=== PATIENT | female | born 1945 | race African-American/Black ===

== ENCOUNTER 2018-04-28 13:33 | Emergency (ER) | payer OTHER ==
[~2018-04-28] VITALS: Ht 162.6 cm; Wt 81.6 kg
[2018-04-28] MEDS ORDERED: LEXAPRO20 MG PO (13:54)
[2018-04-28] MEDS ORDERED: DEPAKOTE ER250 MG PO (13:54)
[2018-04-28] MEDS ORDERED: ZYPREXA20 MG PO (13:55)
[2018-04-28] MEDS ORDERED: CLONAZEPAM1 MG PO (13:55)
[2018-04-28] MEDS ORDERED: ZANTAC300 MG PO (13:56)
[2018-04-28] MEDS ORDERED: NEURONTIN300 MG PO (13:56)
[2018-04-28] MEDS ORDERED: ELIQUIS2.5 MG PO (13:56)
[2018-04-28] MEDS ORDERED: RESTORIL30 MG PO (13:56)
[2018-04-28] MEDS ORDERED: GLIPIZIDE10 MG PO (13:57)
[2018-04-28] MEDS ORDERED: ZOCOR40 MG PO (13:57)
[2018-04-28] MEDS ORDERED: TOPROL XL50 M1 PO (13:57)
[2018-04-28] MEDS ORDERED: PREVACID30 MG PO (13:58)
[2018-04-28] MEDS ORDERED: LISINOPRIL10 MG PO (13:58)
[2018-04-28] MEDS ORDERED: SYNTHROID50 MCG PO (13:59)
== END 2018-04-28 20:06 | disposition home or self-care (01) ==
LOC: ER 13:33
DX: J45.998 Other asthma (principal)

== ENCOUNTER 2018-06-21 19:10 | Emergency (ER) | payer OTHER ==
[~2018-06-21] VITALS: Ht 162.6 cm; Wt 86.2 kg
[~2018-06-21 19:10] MED LIST: CLONAZEPAM1 MG PO; DEPAKOTE ER250 MG PO; ELIQUIS2.5 MG PO; GLIPIZIDE10 MG PO; LEXAPRO20 MG PO; LISINOPRIL10 MG PO; NEURONTIN300 MG PO; PREVACID30 MG PO; RESTORIL30 MG PO; SYNTHROID50 MCG PO; TOPROL XL50 M1 PO; ZANTAC300 MG PO; ZOCOR40 MG PO; ZYPREXA20 MG PO
[2018-06-21] MEDS ORDERED: LOSARTAN POTASS25 MG (19:36)
== END 2018-06-21 22:33 | disposition home or self-care (01) ==
LOC: ER 19:10
DX: M16.12 Unilateral primary osteoarthritis, left hip (principal)